=== PATIENT | male | born 1985 | race Caucasian/White ===

== ENCOUNTER 2017-06-06 19:45 | Emergency (ER) | payer OTHER ==
[~2017-06-06] VITALS: Ht 172.7 cm; Wt 93.0 kg
[2017-06-06] MEDS ORDERED: FLEXERIL PO (20:48)
[2017-06-06 20:58] VITALS: BP 149/97
== END 2017-06-06 21:01 | disposition home or self-care (01) ==
LOC: M.ERS 19:45
DX: S46.812A Strain of other muscles, fascia and tendons at shoulder and upper arm level, left arm, initial encounter (principal); X58.XXXA Exposure to other specified factors, initial encounter; Y93.89 Activity, other specified; Y92.89 Other specified places as the place of occurrence of the external cause; Y99.8 Other external cause status

== ENCOUNTER → 2019-09-30 | Outpatient (CLI) | payer OTHER ==
[~2019-09-30] MED LIST: FLEXERIL PO
== END ==
LOC: M.RAD 08:20
DX: M54.5 Low back pain (principal); R35.0 Frequency of micturition